=== PATIENT | male | born 1985 | race Caucasian/White ===

== ENCOUNTER 2019-12-06 17:03 | Emergency (ER) | payer BC ==
--- NOTE | 2019-12-06 18:52 | EDM.PDOC ---
ED HPI GENERAL MEDICAL PROBLEM - General Chief Complaint: General Stated Complaint: TOOTH PAIN Time Seen by Provider: 12/06/19 17:05 Source of Information: Reports: Patient History Limitations: Reports: No Limitations - History of Present Illness INITIAL COMMENTS - FREE TEXT/NARRATIVE: HISTORY AND PHYSICAL: History of present illness: Patient is a 33-year-old male who presents to the ED today with concern of tooth pain that started this morning. Patient states a few weeks ago he broke the tooth in half when he was eating and he is from [place]. Patient states that he was given penicillin from his dentist in [place] to get him through until he was back home. Patient states he stopped taking the penicillin a few days ago. Patient states he started noticing the tooth pain and swelling beginning again today. Patient states he does have an appointment in a week and a half to get the tooth removed with his dentist in [place]. Patient states he has been able to eat/drink but does have pain with chewing on the right side. Patient denies any other symptoms or concerns. Patient denies fever, chills, chest pain, shortness of breath, or cough. Denies headache, neck stiff ness, change in vision, syncope, or near syncope. Denies nausea, vomiting, abdominal pain, diarrhea, constipation, or dysuria. Has not noted any blood in urine or stool. Patient has been eating and drinking appropriately. Review of systems: As per history of present illness and below otherwise all systems reviewed and negative. Past medical history: As per history of present illness and as reviewed below otherwise noncontributory. Surgical history: As per history of present illness and as reviewed below otherwise noncontributory. Social history: See social history for further information Family history: As per history of present illness and as reviewed below otherwise noncontributory. Physical exam: General: Patient is alert, oriented, and in no acute distress. Patient sitting comfortably on exam table. HEENT: Tooth # 31 is broken with surrounding erythema of the gumline without obvious drainable abscess. The adjacent mandible has mild-moderate edema. Atraumatic, normocephalic, pupils equal and reactive bilaterally, negative for conjunctival pallor or scleral icterus, mucous membranes moist, TMs normal bilaterally, throat clear, neck supple, nontender, trachea midline. No drooling or trismus noted. No meningeal signs. No hot potato voice noted. Lungs: Clear to auscultation, breath sounds equal bilaterally, chest nontender. Heart: S1S2, regular rate and rhythm without overt murmur Abdomen: Soft, nondistended, nontender. Negative for masses or hepatosplenomegaly. Negative for costovertebral tenderness. Pelvis: Stable nontender. Genitourinary: Deferred. Rectal: Deferred. Skin: Intact, warm, dry. No lesions or rashes noted. Extremities: Atraumatic, negative for cords or calf pain. Neurovascular unremarkable. Neuro: Awake, alert, oriented. Cranial nerves II through XII unremarkable. Cerebellum unremarkable. Motor and sensory unremarkable throughout. Exam nonfocal. Notes: Discussed the importance for follow-up with a dentist for definitive treatment. Voices understanding and is agreeable to plan of care. Denies any further questions or concerns at this time. Diagnostics: None Therapeutics: Dental balls Prescription: Diclofenac, Clindamycin Impression: Dental abscess Plan: 1. Please take medication as prescribed. 2. Tylenol and/or ibuprofen as directed and as needed for pain management. 3. "Tooth Balls" have been given to you; apply along the gumline every 2-3 hours as needed. Do not swallow these; external use only. 4. Follow-up with a dentist for definitive care. Return to the ED as needed and as discussed. Definitive disposition and diagnosis as appropriate pending reevaluation and review of above. dental Pain Score (Numeric/FACES): 8 - Related Data Allergies Allergy/AdvReac Type Severity Reaction Status Date / Time No Known Allergies Allergy Verified 12/06/19 19:09 Home Meds: Home Meds Clindamycin HCl 300 mg PO TID 10 Days #30 capsule 12/06/19 [Rx] Diclofenac Sodium [Voltaren] 75 mg PO BIDMEALS PRN #15 tab.cr 12/06/19 [Rx] Penicillin V Potassium 12/06/19 [History] ED ROS GENERAL - Review of Systems Review Of Systems: Comprehensive ROS is negative, except as noted in HPI. ED EXAM, GENERAL - Physical Exam Exam: See Below (see dictation) Course - Orders/Labs/Meds Orders: Active Orders 24 hr Category Date Time Status Benzocaine [Hurricaine One 20%] Med 12/06/19 19:20 Once 2 each MUCMEM ONETIME ONE Lidocaine 2% [Xylocaine 2% Viscous] Med 12/06/19 19:20 Once 15 ml PO ONETIME ONE Departure - Departure Time of Disposition: 19:24 Disposition: Home, Self-Care 01 Clinical Impression: Dental abscess - Discharge Information Prescriptions: Clindamycin HCl 300 mg PO TID 10 Days #30 capsule Diclofenac Sodium [Voltaren] 75 mg PO BIDMEALS PRN #15 tab.cr PRN Reason: Pain Referrals: PCP,None [Primary Care Provider] - Forms: ED Department Discharge Additional Instructions: The following information is given to patients seen in the emergency department who are being discharged to home. This information is to outline your options for follow-up care. We provide all patients seen in our emergency department with a follow-up referral. The need for follow-up, as well as the timing and circumstances, are variable depending upon the specifics of your emergency department visit. If you don't have a primary care physician on staff, we will provide you with a referral. We always advise you to contact your personal physician following an emergency department visit to inform them of the circumstance of the visit and for follow-up with them and/or the need for any referrals to a consulting specialist. The emergency department will also refer you to a specialist when appropriate. This referral assures that you have the opportunity for follow-up care with a specialist. All of these measure are taken in an effort to provide you with optimal care, which includes your follow-up. Under all circumstances we always encourage you to contact your private physician who remains a resource for coordinating your care. When calling for follow-up care, please make the office aware that this follow-up is from your recent emergency room visit. If for any reason you are refused follow-up, please contact the [facility] at and asked to speak to the emergency department charge nurse. [facility] [address] [place] [id number] [id number] 1. Please take medication as prescribed. 2. Tylenol and/or ibuprofen as directed and as needed for pain management. 3. "Tooth Balls" have been given to you; apply along the gumline every 2-3 hours as needed. Do not swallow these; external use only. 4. Follow-up with a dentist for definitive care. Return to the ED as needed and as discussed. Sepsis Event Note - Focused Exam Date Exam was Performed: 12/06/19 Time Exam was Performed: 19:20 - My Orders Last 24 Hours: My Active Orders 12/06/19 19:20 Benzocaine [Hurricaine One 20%] 2 each MUCMEM ONETIME ONE Lidocaine 2% [Xylocaine 2% Viscous] 15 ml PO ONETIME ONE - Assessment/Plan Last 24 Hours: My Active Orders 12/06/19 19:20 Benzocaine [Hurricaine One 20%] 2 each MUCMEM ONETIME ONE Lidocaine 2% [Xylocaine 2% Viscous] 15 ml PO ONETIME ONE
[2019-12-06] MEDS ORDERED: Benzocaine 20% Topical Spray UD MUCMEM ONE (19:20)
[2019-12-06] MEDS ORDERED: Lidocaine 2% Viscous Solution 15 ML Cup PO ONE (19:20)
== END 2019-12-06 19:51 | disposition home or self-care (01) ==
LOC: MW.ED 17:03
DX: K04.7 Periapical abscess without sinus (principal)
CPT/HCPCS: 99282; A9270; 99283